=== PATIENT | female | born 1950 | race American Indian/Alaskan Native ===

== ENCOUNTER → 2019-04-06 09:22 | Outpatient (CLI) | payer MEDICARE, OTHER, SELFPAY ==
--- NOTE | 2019-04-06 | DI.RAD.S_ITS ---
PROCEDURE: XR FOOT RT MIN 3V INDICATIONS: PAIN IN RIGHT MIDFOOT TECHNIQUE: 3 views of the foot were acquired. COMPARISON: [facility], , FOOT 2V LEFT, 02/20/2017, 10:20. FINDINGS: Bones: No fractures or dislocations. No suspicious bony lesions. First MTP and diffuse interphalangeal joint degeneration. Soft tissues: No tibiotalar joint effusion. Achilles tendon appears normal. IMPRESSION: Mild degenerative changes as above. If the patient's pain or other symptoms persist, consider further evaluation with MRI Dictated by: Solomon Bahena M.D. on 04/06/2019 at 16:11 Approved by: Solomon Bahena M.D. on 04/06/2019 at 16:12
== END ==
PROVIDERS: PCP Family Medicine; Visit Provider Family Medicine
DX: M79.671 Pain in right foot (principal); M19.071 Primary osteoarthritis, right ankle and foot
CPT/HCPCS: 73630

== ENCOUNTER → 2020-01-08 10:56 | Outpatient (CLI) | payer MEDICARE, OTHER, SELFPAY ==
--- NOTE | 2020-01-08 | DI.RAD.S_ITS ---
PROCEDURE: XR CHEST 2V INDICATIONS: COUGH TECHNIQUE: 2 views of the chest were acquired. COMPARISON: None. FINDINGS: Surgical changes and devices: None. Lungs and pleura: Lungs are clear. No pleural effusions or pneumothorax. Mediastinum: Mediastinal contours are normal. Heart size is normal. Bones and chest wall: No suspicious bony abnormalities. Soft tissues appear unremarkable. IMPRESSION: Normal for age, source of current cough symptoms is not seen. Dictated by: Andrei Martinez M.D. on 01/08/2020 at 11:47 Approved by: Andrei Martinez M.D. on 01/08/2020 at 11:48
== END ==
PROVIDERS: PCP Family Medicine; Referring Provider Physician Assistant; Visit Provider Physician Assistant
DX: R05 Cough (principal)
CPT/HCPCS: 71046

== ENCOUNTER → 2020-08-05 15:29 | Outpatient (CLI) | payer MEDICARE, OTHER, SELFPAY ==
--- NOTE | 2020-08-05 15:39 | DI.RAD.S_ITS ---
PROCEDURE: XR FOOT LT MIN 3V INDICATIONS: LEFT FOOT PAIN' TECHNIQUE: 3 views of the foot were acquired. COMPARISON: [facility], CR, XR FOOT RT MIN 3V, 04/06/2019, 9:25. [facility], CR, FOOT 2V LEFT, 02/20/2017, 10:20. FINDINGS: Bones: No fractures or dislocations. No suspicious bony lesions. Mild 1st MTP and diffuse interphalangeal joint space narrowing. Small plantar and posterior calcaneal enthesophytes. Soft tissues: No tibiotalar joint effusion. Achilles tendon appears normal. IMPRESSION: Mild forefoot joint degeneration and calcaneal enthesopathy. Dictated by: Phillip Gray [facility] Interpreted: Vin De La Rosa MD on 08/05/2020 at 15:56 Approved by: Vin De La Rosa M.D. on 08/05/2020 at 17:03
== END ==
PROVIDERS: PCP Family Medicine; Referring Provider Family Medicine; Visit Provider Family Medicine
DX: M79.672 Pain in left foot (principal); M19.072 Primary osteoarthritis, left ankle and foot; M77.32 Calcaneal spur, left foot
CPT/HCPCS: 73630

== ENCOUNTER → 2021-07-17 15:20 | Outpatient (CLI) | payer MEDICARE, OTHER, SELFPAY ==
--- NOTE | 2021-07-17 | DI.RAD.S_ITS ---
PROCEDURE: XR CHEST 2V INDICATIONS: COUGH TECHNIQUE: 2 views of the chest were acquired. COMPARISON: [facility], CR, XR CHEST 2V, 01/08/2020, 11:09. FINDINGS: Surgical changes and devices: None. Lungs and pleura: Lungs are clear. No pleural effusions or pneumothorax. Mediastinum: Mediastinal contours are normal. Heart size is normal. Bones and chest wall: No suspicious bony abnormalities. Soft tissues appear unremarkable. IMPRESSION: No acute cardiopulmonary abnormality. Dictated by: Floyd Marti M.D. on 07/17/2021 at 17:14 Approved by: Floyd Marti M.D. on 07/17/2021 at 17:15
== END ==
PROVIDERS: PCP Family Medicine; Referring Provider Registered Nurse; Visit Provider Registered Nurse
DX: R05.9 Cough, unspecified (principal)
CPT/HCPCS: 71046

== ENCOUNTER → 2022-03-25 09:30 | Outpatient (CLI) | payer MEDICARE, OTHER, SELFPAY ==
--- NOTE | 2022-03-25 | DI.RAD.S_ITS ---
PROCEDURE: XR KNEE LT 3V INDICATIONS: Pain in left knee TECHNIQUE: 3 views of the knee were acquired. COMPARISON: None. FINDINGS: Bones: No fractures or dislocations. Moderate tricompartmental osteoarthritis is seen with joint space narrowing, subchondral sclerosis and small marginal osteophyte formation most notably in medial femoral tibial compartment. No suspicious bony lesions. Soft tissues: Moderate to large suprapatellar joint effusion is seen. No suspicious soft tissue calcifications. IMPRESSION: No acute left knee fracture or dislocation. Moderate tricompartmental osteoarthritis and moderate joint effusion as above. If indicated, MRI of knee can be done for further evaluation of internal derangement. Dictated by: Hardy Conner M.D. on 03/25/2022 at 14:56 Approved by: Hardy Conner M.D. on 03/25/2022 at 15:01
--- NOTE | 2022-03-25 | DI.RAD.S_ITS ---
PROCEDURE: XR KNEE RT 3V INDICATIONS: Pain in left knee TECHNIQUE: 3 views of the knee were acquired. COMPARISON: [facility], CR, XR KNEE LT 3V, 03/25/2022, 9:51. FINDINGS: Bones: No fractures or dislocations. No suspicious bony lesions. Moderate to severe bilateral medial and lateral compartmental joint space narrowing. Right mild patellofemoral joint space narrowing. No joint effusion Soft tissues: No joint effusion. No suspicious soft tissue calcifications. IMPRESSION: Tricompartmental osteoarthritis fracture or joint effusion Approved by: Abhay Rodgers M.D. on 03/25/2022 at 15:12
== END ==
PROVIDERS: PCP Family Medicine; Referring Provider Family Medicine; Visit Provider Family Medicine
DX: M17.12 Unilateral primary osteoarthritis, left knee (principal); M25.562 Pain in left knee; M25.462 Effusion, left knee
CPT/HCPCS: 73562

== ENCOUNTER 2023-06-04 17:06 | Emergency (ER) | payer MEDICARE, OTHER, SELFPAY ==
[2023-06-04 17:16] VITALS: BP 147/66; PULSE 70; RESP 16; TEMP 36.6; O2SAT 100; BMI 20.3
--- NOTE | 2023-06-04 17:21 | DI.RAD.S_ITS ---
PROCEDURE: XR WRIST RT MIN 3V INDICATIONS: fall/injury TECHNIQUE: 4 views of the wrist were acquired. COMPARISON: None. FINDINGS: Bones: No displaced fracture or dislocation. Soft tissues: No suspicious calcifications. On scaphoid view, there is widening of the scapholunate interval. IMPRESSION: No acute fracture or dislocation. If there is high concern for occult injury, consider repeat radiography or cross-sectional imaging. Widening of the scapholunate interval seen on scaphoid view, suggestive of ligamentous injury, age indeterminate. (This could be further evaluated on MRI.) Dictated by: Fam Lindsay M.D. on 06/04/2023 at 18:22 Approved by: Fam Lindsay M.D. on 06/04/2023 at 18:24
--- NOTE | 2023-06-04 21:39 | ED.FALL ---
HPI - Fall General Chief Complaint: Fall Stated Complaint: fell check to make sure right hand is not broke Time Seen by Provider: 06/04/23 21:37 Source: patient Mode of arrival: Ambulatory History of Present Illness HPI Narrative: 73-year-old female was descending a ladder missed the last rung and fell backwards on an outstretched right wrist. Has pain in the right wrist. There is some swelling. She did not hit her head she is not anticoagulated. Injury occurred just prior to arrival. Related Data Previous Rx's Medication Instructions Recorded ciprofloxacin HCl 500 mg tablet 500 mg PO BID #14 tabs 02/20/17 (Cipro) Allergies Allergy/AdvReac Type Severity Reaction Status Date / Time Sulfa (Sulfonamide Allergy Intermediate Unverified 09/22/17 12:56 Antibiotics) [SULFA (SULFONAMIDE ANTIBIOTICS)] Patient History Social History Smoking Status: Never smoker Smoking Status: Never smoker Substance Use Type: does not use Exam Initial Vital Signs Initial Vital Signs: Vital Signs Temperature 97.8 F 06/04/23 17:16 Pulse Rate 70 06/04/23 17:16 Respiratory Rate 16 06/04/23 17:16 Blood Pressure 147/66 H 06/04/23 17:16 Pulse Oximetry 100 06/04/23 17:16 Oxygen Delivery Method Room Air 06/04/23 17:16 Const General: No acute distress HENMT Head: normocephalic and atraumatic Extrem Other: Right wrist has limited range of motion secondary to pain. There swelling over the dorsum of the wrist in the mid part of the wrist. There is no bony tenderness over the radius or ulna. Capillary refill sensation are intact, she has intact motor function medial radial ulnar nerves there are no deformity. Procedures Orthopedic Splinting/Casting Injury #1: Time of procedure: 21:50 Side: right Upper Extremity Injury Location: wrist Upper Extremity Immobilizer: volar splint Post splinting neuro exam: intact Post splinting vascular exam: intact Additional Comments: Orthoglass volar splint applied by tech with my direct supervision Course Orders Ordered: ED Orders 06/04/23 17:21 XR wrist RT min 3V Stat Discontinued Medications Hydrocodone Bitart/Acetaminophen (Hydrocodone/Acet 5/325 Tablet) 1 tab PO NOW ONE Stop: 06/04/23 21:44 Last Admin: 06/04/23 21:49 Dose: 1 tab Hydrocodone Bitart/Acetaminophen (Hydrocodone/Acet 5/325 Prepack) 1 bottle MISC DIRECTED ONE Stop: 06/04/23 21:44 Last Admin: 06/04/23 21:49 Dose: 1 bottle Vital Signs Vital signs: Vital Signs - 8 hr 06/04/23 17:16 Temperature 97.8 F Pulse Rate 70 Respiratory Rate 16 Blood Pressure 147/66 H Pulse Oximetry 100 Oxygen Delivery Method Room Air MDM - Fall Imaging Data Extremity x-ray #1: My Impression: Independent review of the right wrist. No fracture seen Radiologist's Impression: IMPRESSION: No acute fracture or dislocation. If there is high concern for occult injury, consider repeat radiography or cross-sectional imaging. Widening of the scapholunate interval seen on scaphoid view, suggestive of ligamentous injury, age indeterminate. (This could be further evaluated on MRI.) Dictated by: Fam Lindsay M.D. on 06/04/2023 at 18:22 Approved by: Fam Lindsay M.D. on 06/04/2023 at 18:24 [facility] Narrative Medical decision making narrative: Fall on outstretched wrist, no deformity no fracture seen but likely wrist sprain as outlined in imaging report. She is placed in a volar splint was given a prepack of [place] recommended ice elevation and Orthopedics follow-up. Neurologically intact closed injury. Discharge Plan Departure Patient Disposition: Home Clinical Impression: Right wrist sprain Activity Restrictions/Additional Instructions: I think you have a ligamentous injury (sprain) of your right wrist. You should see an orthopedic doctor about this. We have made a referral. In the meantime leave the splint on elevate above the level of the heart when able and you can apply ice if needed, keeping ice from direct skin contact and removing after 10-15 minutes. I have sent a few [place] that you can use for pain, additionally, I recommend that use plain Tylenol and or ibuprofen as needed for milder pain. Recall that each [place] has 325 mg of Tylenol in it, your total daily dose of Tylenol from all sources should not exceed 3000 mg. Keep your splint clean and dry. Return to the emergency department for severe pain or weakness in hand. Prescriptions: No Action ciprofloxacin HCl [Cipro] 500 MG tablet 500 mg PO BID Qty: 14 0RF Referrals: Luanne Gan MD [Primary Care Provider] - Lucio Weathers MD [Physician] - Stand Alone Forms: Patient Portal/API
[2023-06-04] MEDS: HYDROCODONE/ACET 5/325 TABLET 1 TAB PO (21:49)
[2023-06-04] MEDS: HYDROCODONE/ACET 5/325 PREPACK 1 BOTTLE MISC (21:49)
== END 2023-06-04 22:05 | disposition home or self-care (01) ==
PROVIDERS: Emergency Provider Emergency Medicine; PCP Family Medicine
DX: S63.501A Unspecified sprain of right wrist, initial encounter (principal); W18.30XA Fall on same level, unspecified, initial encounter
CPT/HCPCS: 29125; 73110; 99283

== ENCOUNTER → 2024-02-07 11:55 | Outpatient (CLI) | payer MEDICARE, OTHER, SELFPAY ==
--- NOTE | 2024-02-07 11:58 | DI.RAD.S_ITS ---
PROCEDURE: XR ANKLE RT MIN 3V INDICATIONS: ANKLE PAIN TECHNIQUE: 3 views of the ankle were acquired. COMPARISON: None. FINDINGS: Bones: No fractures or dislocations. Ankle mortise is normally aligned. No suspicious bony lesions. Soft tissues: No tibiotalar joint effusion. Achilles tendon appears normal. IMPRESSION: No acute bony abnormality or significant effusion. Approved by: Abhay Rodgers M.D. on 02/07/2024 at 18:11
== END ==
LOC: RAD 11:57
PROVIDERS: PCP Family Medicine; Referring Provider Nurse Practitioner Family; Visit Provider Nurse Practitioner Family
DX: M25.571 Pain in right ankle and joints of right foot (principal)
CPT/HCPCS: 73610

== ENCOUNTER → 2024-05-24 09:57 | Outpatient (CLI) | payer MEDICARE, OTHER, SELFPAY ==
--- NOTE | 2024-05-24 10:06 | DI.RAD.S_ITS ---
PROCEDURE: XR CHEST 2V INDICATIONS: COUGH TECHNIQUE: 2 views of the chest were acquired. COMPARISON: [facility], CR, XR CHEST 2V, 07/17/2021, 15:17. FINDINGS: Surgical changes and devices: None. Lungs and pleura: Hyperinflation. No focal infiltrate. No pleural effusions or pneumothorax. Mediastinum: Mediastinal contours are normal. Heart size is normal. Bones and chest wall: No suspicious bony abnormalities. Soft tissues appear unremarkable. IMPRESSION: Hyperinflation, suggestive of COPD. No focal infiltrate, pleural effusion or pneumothorax. Dictated by: Hardy Conner M.D. on 05/24/2024 at 15:40 Approved by: Hardy Conner M.D. on 05/24/2024 at 15:40
== END ==
PROVIDERS: PCP Family Medicine; Referring Provider Nurse Practitioner Family; Visit Provider Nurse Practitioner Family
DX: R05.8 Other specified cough (principal); R07.89 Other chest pain; R53.81 Other malaise; R53.83 Other fatigue
CPT/HCPCS: 71046

== ENCOUNTER → 2025-01-17 14:52 | Outpatient (CLI) | payer MEDICARE, SELFPAY ==
--- NOTE | 2025-01-17 14:54 | DI.MG.S_ITS ---
MM screening mammo BI: 01/17/2025. BI-RADS: 1 CLINICAL: 74-year old female for bilateral screening mammogram. Tyrer-Cuzick lifetime risk of 7.4%. Current reported family history of breast cancer: mother, maternal aunt, second maternal aunt and third maternal aunt. PRIOR EXAMS 04/04/2021, 09/23/2016, 05/15/2016, 04/17/2015. MAMMOGRAPHY TECHNIQUE: 2D and 3D (tomosynthesis) digital mammographic views obtained, with additional images as needed for full coverage. Current study was also evaluated with a Computer Aided Detection (CAD) system. DENSITY C. The breasts are heterogeneously dense, which may obscure small masses. MAMMOGRAPHY FINDINGS Bilateral: No suspicious mass, asymmetry, microcalcification, or other abnormality seen. IMPRESSION: * No evidence of malignancy. RECOMMENDATIONS Bilateral * Annual screening mammography. OVERALL ASSESSMENT CATEGORY BI-RADS-1: Negative. [employer] recommends annual screening mammography beginning at age 40 for women with average risk of breast cancer. ELECTRONICALLY SIGNED: Yoli Villalobos M.D. on 01/22/2025 at 12:59:33 PM PT Interpreting Station ID: [id number]
== END ==
PROVIDERS: PCP Family Medicine; Referring Provider Family Medicine; Visit Provider Family Medicine
DX: Z12.31 Encounter for screening mammogram for malignant neoplasm of breast (principal); R92.333 Mammographic heterogeneous density, bilateral breasts; Z80.3 Family history of malignant neoplasm of breast
CPT/HCPCS: 77063; 77067